=== PATIENT | male | born 1945 | race Hispanic/Latino ===

== ENCOUNTER 2024-07-14 07:55 | Outpatient (CLI) | payer MEDICARE, BC | END 2024-07-14 07:56 | disposition home or self-care (01) | LOC: LABBT 07:55 | PROVIDERS: ATTEND Surgery | DX: Z01.810 Encounter for preprocedural cardiovascular examination (principal); M54.12 Radiculopathy, cervical region; M48.02 Spinal stenosis, cervical region; G99.2 Myelopathy in diseases classified elsewhere | CPT/HCPCS: 93005; 93010 ==

== ENCOUNTER 2024-07-14 08:00 | Inpatient (IN) | payer MEDICARE, BC ==
[2024-07-14 08:25] VITALS: BMI 26.6
[2024-07-14 09:16] LABS: #Basophils 0.04 10x3/uL (0.0-0.2); %Basophils 0.8 % (0.0-1.0); %Eosinophils 3.7 % (0.0-10.0); %Lymphocytes 27.3 % (21.0-51.0); %Monocytes 9.9 % (0.0-10.0); %Neutrophils 58.1 % (42.0-75.0); Hematocrit 41.2 % (42.0-52.0); Mean Corpuscular HGB CONC 31.6 g/dL (32.0-36.0); Mean Corpuscular Hemoglobin 28.1 pg (27.0-31.0); Mean Corpuscular Volume 89.2 fL (78.0-98.0); Mean Platelet Volume 12.2 fL (7.4-10.4); Platelet Count 122 10x3/uL (130-400); RBC Distribution Width 13.4 % (11.5-14.5); Red Blood Cell (RBC) Count 4.62 mill/uL (4.70-6.10)
[2024-07-14 09:35] LABS: Anion Gap 12 mmol/L (10-20); BUN (Urea Nitrogen) 30 mg/dL (8.4-25.7); Calc. Creatinine Clearance 0 mL/min (70-130); Calcium 9.2 mg/dL (7.8-10.44); Carbon Dioxide 24 mmol/L (23-31); Chloride 110 mmol/L (98-107); Estimated GFR 50; Glucose 126 mg/dL (83-110); Hemoglobin A1c 8.7 % (4.0-6.0); Potassium 4.2 mmol/L (3.5-5.1); Sodium 142 mmol/L (136-145)
[2024-07-14 09:39] LABS: Prothrombin Time 13.4 sec (12.0-14.7)
[2024-07-16] MEDS ORDERED: fentaNYL PF 100 MCG/2 ML SYRINGE ONE (09:50)
[2024-07-16] MEDS ORDERED: PROPOFOL 0 ML ONE (09:50)
[2024-07-16] MEDS ORDERED: Lidocaine 1% PF 5 ML VIAL ONE (10:12)
[2024-07-16] MEDS ORDERED: Rocuronium Bromide 10 MG/ML (10ML VIAL) ONE (10:12)
== END 2024-07-16 11:20 | disposition home or self-care (01) | DRG 552 ==
LOC: SURG A 07-16 07:59
PROVIDERS: ADMIT Surgery; ATTEND Surgery
DX: M48.02 Spinal stenosis, cervical region (principal); G99.2 Myelopathy in diseases classified elsewhere; M54.12 Radiculopathy, cervical region; E03.9 Hypothyroidism, unspecified; I10 Essential (primary) hypertension; E78.5 Hyperlipidemia, unspecified; Z79.899 Other long term (current) drug therapy; Z88.8 Allergy status to other drugs, medicaments and biological substances; Z79.84 Long term (current) use of oral hypoglycemic drugs
CPT/HCPCS: 36416; 80048; 83036; 85025; 85610; 85730; 86850; 86900; 86901; 93005; 93010; J2704